=== PATIENT | female | born 1990 | race Asian ===

== ENCOUNTER 2021-08-15 11:16 | Emergency (ER) | payer SELFPAY | END 2021-08-15 12:35 | disposition home or self-care (01) | LOC: CSHERS 11:16 | DX: T25.222A Burn of second degree of left foot, initial encounter (principal); T25.221A Burn of second degree of right foot, initial encounter; T24.232A Burn of second degree of left lower leg, initial encounter; T24.231A Burn of second degree of right lower leg, initial encounter; X08.8XXA Exposure to other specified smoke, fire and flames, initial encounter | CPT/HCPCS: 99282 ==